=== PATIENT | female | born 1945 | race Caucasian/White ===

== ENCOUNTER 2016-12-14 16:13 | Inpatient (IN) | payer MEDICARE, MEDICAID ==
[~2016-12-14] VITALS: Ht 162.6 cm; Wt 123.4 kg
[2016-12-14 16:33] VITALS: BP 125/77
[2016-12-14] MEDS ORDERED: NS + 20MEQ KCL 1,000 ML IV SCH (18:06)
[2016-12-14] MEDS: SODIUM CHLORIDE 0.9% 1,000 ML IV SCH (18:06)
[2016-12-14] MEDS ORDERED: PLEASE ENTER ALLERGIES MC SCH ×2 (18:30)
[2016-12-14] MEDS ORDERED: PLEASE ENTER HEIGHT AND WEIGHT MC SCH (18:30)
[2016-12-14] MEDS ORDERED: LORazepam 2 MG/ML, 1ML IVPush PRN (18:30)
[2016-12-14] MEDS ORDERED: morphine SULFATE 10 MG/ML, 1ML IVPush PRN (18:30)
[2016-12-14] MEDS ORDERED: hydrALAzine 20 MG/ML, 1ML IVPush PRN (18:30)
[2016-12-14] MEDS ORDERED: ONDANSETRON 2MG/ML, 2ML IVPush PRN (18:30)
[2016-12-14 18:55] LABS: HEMATOCRIT 45.9 % (34.6-47.8); HEMOGLOBIN 14.7 g/dL (11.7-16.4); WHITE BLOOD COUNT 10.7 x10^3/uL (3.4-10)
[2016-12-14 19:04] LABS: ASPARTATE AMINO TRANSFERASE 47 U/L (15-37); BLOOD UREA NITROGEN 17 mg/dL (7-18)
[2016-12-14 19:13] VITALS: BP 122/71
[2016-12-14] MEDS: INSULIN ASPART 100 UNITS/ML, PEN SQ-INSULIN SCH (21:00)
[2016-12-15 00:59] LABS: IS PT STATUS REG ER OR PRE ER? NO
[2016-12-15 01:31] VITALS: BP 163/82
[2016-12-15 06:19] LABS: HEMATOCRIT 48.1 % (34.6-47.8); HEMOGLOBIN 15.6 g/dL (11.7-16.4); WHITE BLOOD COUNT 10.3 x10^3/uL (3.4-10)
[2016-12-15 06:46] LABS: ASPARTATE AMINO TRANSFERASE 58 U/L (15-37); BLOOD UREA NITROGEN 14 mg/dL (7-18)
[2016-12-15 06:48] LABS: IS PT STATUS REG ER OR PRE ER? NO
[2016-12-15] MEDS: INSULIN ASPART 100 UNITS/ML, PEN SQ-INSULIN SCH ×4 (07:00→20:35)
[2016-12-15 07:11] VITALS: BP 161/89
[2016-12-15] MEDS: SODIUM CHLORIDE 0.9% 1,000 ML IV SCH (08:03)
[2016-12-15] MEDS: DULOXETINE 30 MG CAPSULE.DR PO SCH (08:03)
[2016-12-15] MEDS: ASPIRIN 325 MG TABLET EC PO SCH (08:03)
[2016-12-15] MEDS: QUETIAPINE 100MG TABLET PO SCH (08:03)
[2016-12-15] MEDS ORDERED: GADOBUTROL 10 MMOL/10 ML PFS ONE (10:05)
[2016-12-15] MEDS ORDERED: hydrALAzine 20 MG/ML, 1ML IVPush PRN (10:30)
[2016-12-15 14:38] VITALS: BP 167/91
[2016-12-15] MEDS ORDERED: DIAZEPAM 5 MG/ML, 2ML IVPush ONE (15:30)
[2016-12-15] MEDS: ENOXAPARIN 40 MG/0.4 ML SQ SCH (17:57)
[2016-12-15 20:27] VITALS: BP 143/82
[2016-12-15] MEDS: ATORVASTATIN 40 MG TABLET PO SCH (20:35)
[2016-12-16 02:13] VITALS: BP 168/89
[2016-12-16] MEDS: ASPIRIN 325 MG TABLET EC PO SCH (04:44)
[2016-12-16] MEDS: SODIUM CHLORIDE 0.9% 1,000 ML IV SCH (04:44)
[2016-12-16] MEDS: INSULIN ASPART 100 UNITS/ML, PEN SQ-INSULIN SCH ×4 (07:00→20:23)
[2016-12-16] MEDS: DULOXETINE 30 MG CAPSULE.DR PO SCH (09:00)
[2016-12-16 09:22] VITALS: BP 171/75
[2016-12-16] MEDS: QUETIAPINE 100MG TABLET PO SCH (09:24)
[2016-12-16] MEDS: AMLODIPINE 5 MG TABLET PO SCH (10:26)
[2016-12-16] MEDS: ENOXAPARIN 40 MG/0.4 ML SQ SCH (18:19)
[2016-12-16 20:15] VITALS: BP 163/84
[2016-12-16] MEDS: ATORVASTATIN 40 MG TABLET PO SCH (20:23)
[2016-12-16 21:17] LABS: PATH.CAST-FLAG NOT PRESENT; SPERM-FLAG NOT PRESENT; SRC-FLAG NOT PRESENT; XTAL-FLAG NOT PRESENT; YLC-FLAG NOT PRESENT
[2016-12-17 00:53] VITALS: BP 144/81
[2016-12-17] MEDS: INSULIN ASPART 100 UNITS/ML, PEN SQ-INSULIN SCH ×4 (07:00→20:20)
[2016-12-17 07:54] VITALS: BP 186/77
[2016-12-17] MEDS: ASPIRIN 325 MG TABLET EC PO SCH (08:53)
[2016-12-17] MEDS: QUETIAPINE 100MG TABLET PO SCH (08:53)
[2016-12-17] MEDS: DULOXETINE 30 MG CAPSULE.DR PO SCH (08:53)
[2016-12-17] MEDS: AMLODIPINE 5 MG TABLET PO SCH (08:54)
[2016-12-17] MEDS: LISINOPRIL 20 MG TABLET PO SCH (08:54)
[2016-12-17 13:59] VITALS: BP 108/62
[2016-12-17] MEDS: ENOXAPARIN 40 MG/0.4 ML SQ SCH (18:17)
[2016-12-17 19:37] VITALS: BP 150/81
[2016-12-17] MEDS: ATORVASTATIN 40 MG TABLET PO SCH (20:20)
[2016-12-18] VITALS: BP 144/76
[2016-12-18] MEDS: INSULIN ASPART 100 UNITS/ML, PEN SQ-INSULIN SCH ×4 (07:00→20:23)
[2016-12-18 07:03] VITALS: BP 167/89
[2016-12-18] MEDS: AMLODIPINE 5 MG TABLET PO SCH (08:32)
[2016-12-18] MEDS: LISINOPRIL 20 MG TABLET PO SCH (08:32)
[2016-12-18] MEDS: DULOXETINE 30 MG CAPSULE.DR PO SCH (08:32)
[2016-12-18] MEDS: QUETIAPINE 100MG TABLET PO SCH (08:33)
[2016-12-18] MEDS: ASPIRIN 325 MG TABLET EC PO SCH (08:33)
[2016-12-18 14:45] VITALS: BP 148/71
[2016-12-18] MEDS: ENOXAPARIN 40 MG/0.4 ML SQ SCH (18:17)
[2016-12-18 19:33] VITALS: BP 155/86
[2016-12-18] MEDS: ATORVASTATIN 40 MG TABLET PO SCH (20:24)
[2016-12-19 01:25] VITALS: BP 92/52
[2016-12-19] MEDS: INSULIN ASPART 100 UNITS/ML, PEN SQ-INSULIN SCH ×4 (07:42→21:08)
[2016-12-19] MEDS: AMLODIPINE 5 MG TABLET PO SCH (07:43)
[2016-12-19] MEDS: LISINOPRIL 20 MG TABLET PO SCH (07:43)
[2016-12-19] MEDS: ASPIRIN 325 MG TABLET EC PO SCH (07:43)
[2016-12-19] MEDS: DULOXETINE 30 MG CAPSULE.DR PO SCH (07:43)
[2016-12-19] MEDS: QUETIAPINE 100MG TABLET PO SCH (07:43)
[2016-12-19 07:44] VITALS: BP 156/78
[2016-12-19 13:21] VITALS: BP 126/71
[2016-12-19] MEDS: ENOXAPARIN 40 MG/0.4 ML SQ SCH (16:39)
[2016-12-19 19:05] VITALS: BP 119/68
[2016-12-19] MEDS: ATORVASTATIN 40 MG TABLET PO SCH (21:07)
[2016-12-20 01:24] VITALS: BP 124/76
[2016-12-20] MEDS ORDERED: BISACODYL 10 MG SUPP PR PRN (02:30)
[2016-12-20] MEDS ORDERED: POLYETHYLENE GLYCOL 17 GM PACKET NG PRN (02:30)
[2016-12-20 06:13] LABS: BLOOD UREA NITROGEN 15 mg/dL (7-18)
[2016-12-20] MEDS: ASPIRIN 325 MG TABLET EC PO SCH (06:37)
[2016-12-20 08:36] VITALS: BP_SYST 104; BP_SYST 148; BP_DIAS 72; BP_DIAS 74
[2016-12-20] MEDS: SENNA/DOCUSATE TABLET PO SCH ×2 (09:01→20:27)
[2016-12-20] MEDS: DULOXETINE 30 MG CAPSULE.DR PO SCH (09:01)
[2016-12-20] MEDS: LISINOPRIL 20 MG TABLET PO SCH (09:01)
[2016-12-20] MEDS: QUETIAPINE 100MG TABLET PO SCH (09:01)
[2016-12-20] MEDS: AMLODIPINE 5 MG TABLET PO SCH (09:01)
[2016-12-20] MEDS: INSULIN ASPART 100 UNITS/ML, PEN SQ-INSULIN SCH ×4 (09:02→20:28)
[2016-12-20 14:30] VITALS: BP 143/78
[2016-12-20] MEDS: BISACODYL 10 MG SUPP PR SCH (16:00)
[2016-12-20] MEDS: ENOXAPARIN 40 MG/0.4 ML SQ SCH (17:43)
[2016-12-20 19:57] VITALS: BP 181/103
[2016-12-20 20:25] VITALS: BP 122/74
[2016-12-20] MEDS: ATORVASTATIN 40 MG TABLET PO SCH (20:27)
[2016-12-21 00:29] VITALS: BP 150/76
[2016-12-21] MEDS: ASPIRIN 325 MG TABLET EC PO SCH (06:22)
[2016-12-21 07:50] VITALS: BP 156/72
[2016-12-21] MEDS: DULOXETINE 30 MG CAPSULE.DR PO SCH (08:20)
[2016-12-21] MEDS: AMLODIPINE 5 MG TABLET PO SCH (08:20)
[2016-12-21] MEDS: QUETIAPINE 100MG TABLET PO SCH (08:21)
[2016-12-21] MEDS: SENNA/DOCUSATE TABLET PO SCH (08:21)
[2016-12-21] MEDS: BISACODYL 10 MG SUPP PR SCH (08:21)
[2016-12-21] MEDS: LISINOPRIL 20 MG TABLET PO SCH (08:21)
[2016-12-21] MEDS: INSULIN ASPART 100 UNITS/ML, PEN SQ-INSULIN SCH ×2 (08:26→11:00)
[2016-12-21] MEDS ORDERED: AMLO5TAB2 PO (09:28)
[2016-12-21] MEDS ORDERED: LISI-170 PO (09:28)
[2016-12-21] MEDS ORDERED: ASPI-650 PO (09:28)
[2016-12-21] MEDS ORDERED: ATOR40TA78 PO (09:28)
[2016-12-21] MEDS ORDERED: QUET100T PO (09:28)
[2016-12-21] MEDS ORDERED: DULO30CA2 PO (09:28)
== END 2016-12-21 14:16 | DRG 64 ==
LOC: 5SO 16:13 → 4EST 12-19 18:02
PROVIDERS: ADMIT Internal Medicine; ATTEND Hospitalist
PROC: 0T9B70Z Drainage of Bladder with Drainage Device, Via Natural or Artificial Opening (ICD-10-PCS; principal; 2016-12-14)
DX: I63.322 Cerebral infarction due to thrombosis of left anterior cerebral artery (principal); E43 Unspecified severe protein-calorie malnutrition; G92 Toxic encephalopathy; I50.32 Chronic diastolic (congestive) heart failure; Z68.42 Body mass index [BMI] 45.0-49.9, adult; G81.91 Hemiplegia, unspecified affecting right dominant side; R41.4 Neurologic neglect syndrome; I11.0 Hypertensive heart disease with heart failure; E11.9 Type 2 diabetes mellitus without complications; E66.01 Morbid (severe) obesity due to excess calories; F31.9 Bipolar disorder, unspecified; F80.2 Mixed receptive-expressive language disorder; I25.10 Atherosclerotic heart disease of native coronary artery without angina pectoris; F41.9 Anxiety disorder, unspecified; I66.02 Occlusion and stenosis of left middle cerebral artery
CPT/HCPCS: 36415; 70450; 70544; 70553; 71010; 74000; 80048; 80053; 80061; 81001; 82040; 82140; 82607; 82746; 82962; 83036; 83735; 84100; 84443; 84484; 85025; 87040; 95819; A9585; J1650; J1815; J3360; J3480; 92523-GN; J7030

== ENCOUNTER 2016-12-31 06:10 | Inpatient (IN) | payer MEDICARE, MEDICAID ==
[~2016-12-31] VITALS: Ht 165.1 cm; Wt 121.9 kg
[~2016-12-31 06:10] MED LIST: AMLO5TAB2 PO; ASPI-650 PO; ATOR40TA78 PO; DULO30CA2 PO; GLIM1TAB2 PO; INSU100I13 INJ; LISI-170 PO; QUET100T PO
[2016-12-31] MEDS ORDERED: SODIUM CHLORIDE FLUSH 10ML SYR IVF ONE (06:30)
[2016-12-31] MEDS ORDERED: SODIUM CHLORIDE 0.9% 1,000ML IVBOLUS ONE ×2 (06:30→07:30)
[2016-12-31 06:51] LABS: HEMATOCRIT 37.2 % (34.6-47.8); HEMOGLOBIN 12.1 g/dL (11.7-16.4); WHITE BLOOD COUNT 15.6 x10^3/uL (3.4-10)
[2016-12-31 07:03] LABS: ASPARTATE AMINO TRANSFERASE 30 U/L (15-37); BLOOD UREA NITROGEN 16 mg/dL (7-18)
[2016-12-31] MEDS ORDERED: AMLO10TA2 PO (07:20)
[2016-12-31] MEDS ORDERED: QUET100T4 PO (07:20)
[2016-12-31] MEDS ORDERED: ONDA4TAB10 PO (07:20)
[2016-12-31] MEDS ORDERED: OMNIPAQUE 350 MG/ML, 100ML BOTTLE ONE (07:56)
[2016-12-31 10:25] VITALS: BP 117/77
[2016-12-31] MEDS ORDERED: ONDANSETRON ODT 4 MG PO PRN (12:00)
[2016-12-31] MEDS ORDERED: hydrALAzine 20 MG/ML, 1ML IVPush PRN (12:00)
[2016-12-31] MEDS ORDERED: LABETALOL 5MG/ML, 20ML IVPush PRN (12:00)
[2016-12-31] MEDS ORDERED: morphine SULFATE 10 MG/ML, 1ML IVPush PRN (12:00)
[2016-12-31] MEDS: NICOTINE 14MG/24 HR PATCH.TD24 TD SCH (12:00)
[2016-12-31] MEDS ORDERED: ONDANSETRON 2MG/ML, 2ML IVPush PRN (12:00)
[2016-12-31] MEDS ORDERED: DOCUSATE 100 MG CAPSULE PO PRN (12:00)
[2016-12-31] MEDS ORDERED: PLEASE ENTER HEIGHT AND WEIGHT MC SCH ×2 (12:00→12:30)
[2016-12-31] MEDS ORDERED: ACETAMINOPHEN 325 MG TABLET PO PRN (12:00)
[2016-12-31] MEDS ORDERED: BISACODYL 10 MG SUPP PR PRN (12:00)
[2016-12-31] MEDS ORDERED: POLYETHYLENE GLYCOL 17 GM PACKET PO PRN (12:00)
[2016-12-31] MEDS ORDERED: ZOLPIDEM 5MG TABLET PO PRN (12:00)
[2016-12-31 15:23] VITALS: BP 134/81
[2016-12-31] MEDS: ONDANSETRON ODT 4 MG PO SCH ×3 (16:00→21:14)
[2016-12-31] MEDS: D5%-0.45NACL+KCL 20MEQ 1,000 ML IV SCH (16:10)
[2016-12-31] MEDS: INSULIN ASPART 100 UNITS/ML, PEN SQ-INSULIN SCH ×2 (17:15→20:54)
[2016-12-31 20:00] VITALS: BP 127/81
[2016-12-31] MEDS: ATORVASTATIN 40 MG TABLET PO SCH (22:38)
[2017-01-01 00:38] LABS: HEMATOCRIT 33.8 % (34.6-47.8); HEMOGLOBIN 10.9 g/dL (11.7-16.4)
[2017-01-01 02:00] VITALS: BP 122/80
[2017-01-01] MEDS: D5%-0.45NACL+KCL 20MEQ 1,000 ML IV SCH ×2 (03:15→17:27)
[2017-01-01 06:53] LABS: BLOOD UREA NITROGEN 21 mg/dL (7-18)
[2017-01-01 07:04] LABS: HEMATOCRIT 34.6 % (34.6-47.8); HEMOGLOBIN 11.1 g/dL (11.7-16.4)
[2017-01-01] MEDS: PANTOPRAZOLE 40 MG IV IVPush SCH (07:28)
[2017-01-01] MEDS: INSULIN ASPART 100 UNITS/ML, PEN SQ-INSULIN SCH ×4 (07:43→20:26)
[2017-01-01] MEDS: DULOXETINE 30 MG CAPSULE.DR PO SCH (08:39)
[2017-01-01] MEDS: QUETIAPINE 100MG TABLET PO SCH (08:39)
[2017-01-01] MEDS: LISINOPRIL 20 MG TABLET PO SCH (08:40)
[2017-01-01] MEDS: AMLODIPINE 5 MG TABLET PO SCH (08:48)
[2017-01-01 08:50] VITALS: BP_SYST 101; BP_SYST 132; BP_DIAS 63; BP_DIAS 68
[2017-01-01] MEDS: NICOTINE 14MG/24 HR PATCH.TD24 TD SCH (12:00)
[2017-01-01 15:41] VITALS: BP 98/54
[2017-01-01 20:02] VITALS: BP 116/59
[2017-01-01] MEDS: ATORVASTATIN 40 MG TABLET PO SCH ×2 (20:25→20:32)
[2017-01-02 01:38] VITALS: BP 113/63
[2017-01-02] MEDS: D5%-0.45NACL+KCL 20MEQ 1,000 ML IV SCH ×3 (02:34→23:22)
[2017-01-02 06:29] LABS: HEMATOCRIT 32.9 % (34.6-47.8); HEMOGLOBIN 10.5 g/dL (11.7-16.4); WHITE BLOOD COUNT 13.2 x10^3/uL (3.4-10)
[2017-01-02 06:54] LABS: PATH.CAST-FLAG NOT PRESENT; SPERM-FLAG NOT PRESENT; SRC-FLAG NOT PRESENT; XTAL-FLAG NOT PRESENT; YLC-FLAG NOT PRESENT
[2017-01-02 07:19] VITALS: BP 126/70
[2017-01-02] MEDS: PANTOPRAZOLE 40 MG IV IVPush SCH (07:35)
[2017-01-02] MEDS: DULOXETINE 30 MG CAPSULE.DR PO SCH (09:06)
[2017-01-02] MEDS: AMLODIPINE 5 MG TABLET PO SCH (09:06)
[2017-01-02] MEDS: LISINOPRIL 20 MG TABLET PO SCH (09:06)
[2017-01-02] MEDS: QUETIAPINE 100MG TABLET PO SCH (09:06)
[2017-01-02] MEDS: INSULIN ASPART 100 UNITS/ML, PEN SQ-INSULIN SCH ×4 (09:07→21:24)
[2017-01-02] MEDS: NICOTINE 14MG/24 HR PATCH.TD24 TD SCH (12:46)
[2017-01-02 14:03] VITALS: BP 136/77
[2017-01-02 20:32] VITALS: BP 137/74
[2017-01-02] MEDS: ATORVASTATIN 40 MG TABLET PO SCH (21:24)
[2017-01-03 02:37] VITALS: BP 133/68
[2017-01-03 07:17] VITALS: BP 145/74
[2017-01-03 07:42] LABS: BLOOD UREA NITROGEN 10 mg/dL (7-18)
[2017-01-03 07:52] LABS: HEMATOCRIT 30.1 % (34.6-47.8); HEMOGLOBIN 9.7 g/dL (11.7-16.4)
[2017-01-03] MEDS: PANTOPRAZOLE 40 MG IV IVPush SCH (08:10)
[2017-01-03] MEDS: INSULIN ASPART 100 UNITS/ML, PEN SQ-INSULIN SCH ×2 (08:11→11:47)
[2017-01-03] MEDS: QUETIAPINE 100MG TABLET PO SCH (08:16)
[2017-01-03] MEDS: DULOXETINE 30 MG CAPSULE.DR PO SCH (08:18)
[2017-01-03] MEDS: LISINOPRIL 20 MG TABLET PO SCH (08:19)
[2017-01-03] MEDS: AMLODIPINE 5 MG TABLET PO SCH (08:20)
[2017-01-03] MEDS: D5%-0.45NACL+KCL 20MEQ 1,000 ML IV SCH (09:51)
[2017-01-03] MEDS ORDERED: PANT40TA5 PO (11:13)
[2017-01-03] MEDS: NICOTINE 14MG/24 HR PATCH.TD24 TD SCH (11:46)
== END 2017-01-03 13:10 | disposition home or self-care (01) | DRG 377 ==
LOC: ED 06:37 → EDIP 08:46 → 4EST 09:45 → 4WST 01-01 15:13 → 4EST 01-01 15:22
PROVIDERS: ADMIT Hospitalist; ATTEND Hospitalist
PROC: 0T9B70Z Drainage of Bladder with Drainage Device, Via Natural or Artificial Opening (ICD-10-PCS; principal; 2017-01-02)
DX: K92.2 Gastrointestinal hemorrhage, unspecified (principal); N17.0 Acute kidney failure with tubular necrosis; E46 Unspecified protein-calorie malnutrition; I95.9 Hypotension, unspecified; I11.0 Hypertensive heart disease with heart failure; I69.351 Hemiplegia and hemiparesis following cerebral infarction affecting right dominant side; I50.32 Chronic diastolic (congestive) heart failure; K50.911 Crohn's disease, unspecified, with rectal bleeding; Z68.41 Body mass index [BMI] 40.0-44.9, adult; E11.9 Type 2 diabetes mellitus without complications; D64.9 Anemia, unspecified; B19.20 Unspecified viral hepatitis C without hepatic coma; F41.9 Anxiety disorder, unspecified; F31.9 Bipolar disorder, unspecified; E66.9 Obesity, unspecified; E86.0 Dehydration; F17.210 Nicotine dependence, cigarettes, uncomplicated; I25.10 Atherosclerotic heart disease of native coronary artery without angina pectoris; N28.9 Disorder of kidney and ureter, unspecified; Z79.4 Long term (current) use of insulin; Z91.81 History of falling
CPT/HCPCS: 36415; 74177; 80048; 80053; 81001; 82962; 83036; 83605; 83735; 84100; 84439; 84443; 85014; 85018; 85025; 85610; 85730; 86850; 86900; 93005; 96360; 96361; J1815; Q0162; Q9967; C9113; J2270; J3480; J7030